=== PATIENT | female | born 1975 | race African-American/Black ===

== ENCOUNTER 2018-04-29 11:25 | Emergency (ER) | payer OTHER ==
[~2018-04-29] VITALS: Ht 160 cm; Wt 108.0 kg
[2018-04-29] MEDS ORDERED: SINGULAIR 10 MG10 M1 PO (12:04)
[2018-04-29] MEDS ORDERED: VITAMIN D5000 UNIT PO (12:04)
[2018-04-29] MEDS ORDERED: MOBIC7.5 MG PO (12:04)
[2018-04-29 12:05] LABS: URINE BILIRUBIN NEGATIVE (Negative); URINE BLOOD 3+ (Negative); URINE CLARITY CLEAR; URINE COLOR YELLOW; URINE GLUCOSE-RANDOM* NEGATIVE (Negative); URINE KETONES NEGATIVE (Negative); URINE LEUKOCYTES-REFLEX NEGATIVE (Negative); URINE NITRITE-REFLEX NEGATIVE (Negative); URINE PROTEIN (DIPSTICK) NEGATIVE (Negative); URINE SPECIFIC GRAVITY >= 1.030 (1.005-1.035); URINE UROBILINOGEN 0.2 E.U./dl (0.2-1.0)
[2018-04-29 12:08] LABS: BACTERIA-REFLEX 1-9 Few /HPF (None Seen); CASTS None Seen /LPF (None Seen); SQUAMOUS 0-3 Few /LPF (0-3); URINE RBC >20 Many /HPF (0-2); URINE WBC-REFLEX 0-5 Rare /HPF (0-5)
[2018-04-29 12:09] LABS: CRYSTALS None Seen /LPF (None Seen)
[2018-04-29 12:30] LABS: HEMATOCRIT 33.6 % (37.0-47.0); HEMOGLOBIN 11.3 gm/dL (12.0-15.0); MCH 27.1 pg (26.0-34.0); MCHC 33.7 g/dL (28.0-37.0); MCV 80.5 fL (80.0-100.0); PLATELET COUNT 344 thou/uL (150-400); RBC 4.17 mil/uL (4.20-5.00); RDW 16.3 % (10.5-14.5); WBC 3.6 thou/uL (4.0-11.0)
[2018-04-29 12:37] LABS: CALCIUM 9.1 mg/dL (8.5-10.1); CREATININE 0.9 mg/dL (0.6-1.0); POTASSIUM 4.1 mmol/L (3.5-5.1)
[2018-04-29 13:15] LABS: ABSOLUTE NEUTROPHILS 1.6 thou/uL (1.4-8.2)
[2018-04-29 13:16] LABS: ANISOCYTOSIS 1+
[2018-04-29 14:13] VITALS: BP 117/73
== END 2018-04-29 14:14 | disposition home or self-care (01) ==
LOC: ER 11:25
PROVIDERS: Nurse Practitioner Family
DX: N93.8 Other specified abnormal uterine and vaginal bleeding (principal)